=== PATIENT | female | born 1980 | race Two or more races ===

== ENCOUNTER 2016-08-03 14:23 | Emergency (ER) | payer OTHER ==
[~2016-08-03] VITALS: Ht 165.1 cm; Wt 120.7 kg
[2016-08-03 16:13] LABS: UA SPECIFIC GRAVITY <=1.005 (1.005-1.035); urine erythrocyte NEGATIVE (NEGATIVE)
[2016-08-03 16:29] LABS: ALBUMIN 3.5 g/dL (3.4-5.0); ALKALINE PHOSPHATASE 84 U/L (46-116); ALT/SGPT 63 U/L (14-59); AMYLASE 66 U/L (25-115); AST/SGOT 38 U/L (15-37); BASOPHIL % 0.5 % (0-2); BILIRUBIN TOTAL 1.66 mg/dL (0.20-1.00); CALCIUM 8.8 mg/dL (8.5-10.1); CARBON DIOXIDE 29.6 mmol/L (21-32); CHLORIDE SERUM 101 mmol/L (98-107); CREATININE SERUM 0.7 mg/dL (0.6-1.0); GFR1 > 60 mL/min; GLUCOSE SERUM 153 mg/dL (74-106); LIPASE 150 IU/L (73-393); PLATELET COUNT 364 x10^3mcL (130-400); RED CELL DISTRIBUTION WIDTH 13.8 % (11.5-14.5); SODIUM SERUM 138 mmol/L (136-145); TOTAL PROTEIN, SERUM 7.7 g/dL (6.4-8.2)
[2016-08-03 16:38] LABS: POTASSIUM SERUM 2.8 mmol/L (3.5-5.1)
[2016-08-03 16:40] LABS: microscopic required? YES
[2016-08-03 18:17] VITALS: BP 120/62
== END 2016-08-03 18:17 | disposition home or self-care (01) ==
LOC: ED 14:23
PROVIDERS: Emergency Medicine
DX: R10.9 Unspecified abdominal pain (principal); I10 Essential (primary) hypertension; E11.9 Type 2 diabetes mellitus without complications; E66.01 Morbid (severe) obesity due to excess calories; Z88.0 Allergy status to penicillin; Z79.84 Long term (current) use of oral hypoglycemic drugs
CPT/HCPCS: 83880; J1885; Q0092